=== PATIENT | female | born 1965 | race Caucasian/White ===

== ENCOUNTER → 2024-07-29 15:55 | Outpatient (REF) | payer OTHER, SELFPAY | LOC: HWWDC 15:55 | PROVIDERS: ATTENDING PHYSICIAN Obstetrics & Gynecology; FAMILY PHYSICIAN Internal Medicine | DX: Z12.31 Encounter for screening mammogram for malignant neoplasm of breast (principal) | CPT/HCPCS: 77063; 77067 ==

== ENCOUNTER 2025-01-13 06:25 | Day surgery (SDC) | payer OTHER, SELFPAY | END 2025-01-13 13:17 | disposition home or self-care (01) | LOC: GI 06:25 | PROVIDERS: ATTENDING PHYSICIAN Internal Medicine Gastroenterology | DX: Z12.11 Encounter for screening for malignant neoplasm of colon (principal); K57.30 Diverticulosis of large intestine without perforation or abscess without bleeding; K64.0 First degree hemorrhoids; D12.0 Benign neoplasm of cecum; D12.3 Benign neoplasm of transverse colon | CPT/HCPCS: 45380; 45381; 88305 ==

== ENCOUNTER 2025-02-18 06:03 | Day surgery (SDC) | payer OTHER, SELFPAY ==
[2025-02-18 12:45] VITALS: BP 150/70; BMI 27.3
[2025-02-18 14:30] VITALS: BP 150/94
[2025-02-18 14:45] VITALS: BP 169/92
[2025-02-18 14:54] VITALS: BP 164/91
== END 2025-02-18 15:05 | disposition home or self-care (01) ==
LOC: GI 06:03
PROVIDERS: ATTENDING PHYSICIAN Internal Medicine Gastroenterology
DX: K64.0 First degree hemorrhoids (principal); K57.30 Diverticulosis of large intestine without perforation or abscess without bleeding; K63.5 Polyp of colon; D12.3 Benign neoplasm of transverse colon; D12.0 Benign neoplasm of cecum
CPT/HCPCS: 45390; 45385; 88305

== ENCOUNTER → 2025-07-05 13:15 | Outpatient (REF) | payer SELFPAY | LOC: HWRAD 13:15 | PROVIDERS: ATTENDING PHYSICIAN Internal Medicine | DX: E78.2 Mixed hyperlipidemia (principal) | CPT/HCPCS: 75571 ==